=== PATIENT | female | born 1985 | race Caucasian/White ===

== ENCOUNTER 2016-10-13 13:43 | Emergency (ER) | payer SELFPAY ==
[~2016-10-13] VITALS: Wt 69.5 kg
[2016-10-13] MEDS ORDERED: HYDROCODONE/APAP (5/325) TAB PO ONE (16:30)
--- NOTE | 2016-10-13 17:25 | RADRPT ---
PROCEDURE: XR Shoulder. CLINICAL INDICATION: Shoulder pain TECHNIQUE: Three views of the right shoulder are available for review. COMPARISON: None available FINDINGS: The humeral head is grossly located. The AC joint is maintained. There is no acute osseous or artic ular abnormality. No evidence for fracture. The visualized portions of the right lung are clear . IMPRESSION: 1. No acute osseous abnormality. 2. Limited transscapular projection, without definite evidence for glenohumeral joint dislocation. Consider an axillary view if clinical suspicion persists. RPTAT: TT .Ervin Graff MD, MD Date Time Electronically viewed and signed by .Ervin Graff MD, MD on 10/13/2016 17:24 .d/
--- NOTE | 2016-10-13 17:47 | RADRPT ---
PROCEDURE: CT cervical spine without contrast. CLINICAL INDICATION: Injury. Post traumatic neck pain TECHNIQUE: CT of the cervical spine without contrast was performed. Axial images were obtained th rough the cervical spine and reformatted at 1.25 mm slice thickness. Coronal and sagittal images wer e reformatted. Exam CTDIvol = 16.35 mGy and DLP = 331.87 mGy-cm. COMPARISON: None available. FINDINGS: Vertebral bodies: Straightening of the normal lordosis is noted. Stature is preserved at every leve l. There is normal mineralization and trabeculation. The C1 ring is intact and the predental space is preserved. Central canal and cervical spinal cord: No abnormal density within the spinal cord is evident and no intraspinal masses are delineated. C2-3: The disk is within normal limits. The facet joints are normal. The uncovertebral joints and f oramina are unremarkable. No posterior element fracture or paraspinal soft tissue abnormality is not ed. C3-4: The disk is within normal limits. The facet joints are normal. The uncovertebral joints and foramen are unremarkable No posterior element fracture or paraspinal soft tissue abnormality is not ed. C4-5: The disk is within normal limits. The facet joints are normal. The uncovertebral joints and foramina are unremarkable. No posterior element fracture or paraspinal soft tissue abnormality is no alicja. C5-6: The disk is within normal limits. The facet joints are normal. The uncovertebral joints and foramina are unremarkable. No posterior element fracture or paraspinal soft tissue abnormality is no alicja. C6-7: The disk is within normal limits. The facet joints are normal. The uncovertebral joints and foramina are unremarkable. No posterior element fracture or paraspinal soft tissue abnormality is n oted. C7-T1: The disk is within normal limits. The facet joints are normal. The uncovertebral joints and foramina are unremarkable. No posterior element fracture or paraspinal soft tissue abnormality is no alicja. Non spine related findings: No abnormalities of significance are seen. RPTAT:HJJR IMPRESSION: 1. No evidence of cervical spine fracture or subluxation. 2. The lordosis is mildly straightened which may be from positioning but cannot exclude muscle spas m. Abel Estrella, Physician Date Time Electronically viewed and signed by Abel Estrella Physician on 10/13/2016 17:46 JR/
[2016-10-13] MEDS ORDERED: IBUP800T25 PO (18:03)
[2016-10-13] MEDS ORDERED: PRED20TA PO (18:03)
[2016-10-13] MEDS ORDERED: HYDR-902 PO (18:03)
[2016-10-13] MEDS ORDERED: METH-70 PO (18:03)
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
== END 2016-10-13 18:31 | disposition home or self-care (01) ==
LOC: FTE 13:43
DX: S19.9XXA Unspecified injury of neck, initial encounter (principal); M62.838 Other muscle spasm; V43.52XA Car driver injured in collision with other type car in traffic accident, initial encounter
CPT/HCPCS: 72125